=== PATIENT | male | born 1990 | race Caucasian/White ===

== ENCOUNTER 2019-05-06 12:26 | Emergency (ER) | payer OTHER ==
[2019-05-06 12:30] VITALS: BP 124/71; PULSE 68; TEMP 98.7; BMI 22.8
[2019-05-06] MEDS ORDERED: SODIUM CHLORIDE 0.9% 500 ML INFUS.BAG IV ONE (13:48)
[2019-05-06] MEDS ORDERED: FAMOTIDINE 20 MG/50 ML IVPB 20 MG/50 ML MG IVPB ONE ×2 (13:48→14:02)
--- NOTE | 2019-05-06 13:49 | PDOC ---
History of Present Illness - General Chief Complaint: Shortness of Breath Stated Complaint: WEAKNESS/ SOB Time Seen by Provider: 05/06/19 13:20 History Source: Patient Exam Limitations: No Limitations - History of Present Illness Initial Comments: 05/06/19 13:44 Patient is a 28-year-old male who was recently diagnosed with gastritis 1 month ago and started on omeprazole. States he had been having epigastric pain x3 months and went to his primary care doctor had a work-up was sent to GI for an endoscopy. States he has been on omeprazole for a month was feeling better until about 4 days ago when he started having dizziness, weakness and went to [facility] for evaluation. States an EKG and a chest x-ray were done with no findings. He was scheduled to see a greenskeeper laborer in 2 weeks. Patient states 3 days ago stared to have some difficulties with breathing states if feel like it is hard to take a deep breath. He denies cough, sore throat, reflux. He is also more concerned about his lack energy and decreased appetite x 3 days. States does not feel gassy. Endorsed having left sided chest pain 5 days ago and yesterday but did not have any pain today. Family HX; neg for [place]/CVA/PE/ DVT. 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 PMD: [facility] PMHX: as above PSOCHX: neg cig, neg etoh, neg drug ALL: NKDA GENERAL/CONSTITUTIONAL: [No fever or chills. No weakness. No weight change.] HEAD, EYES, EARS, NOSE AND THROAT: [No change in vision. No ear pain or discharge. No sore throat.] CARDIOVASCULAR: [(+) chest pain or shortness of breath.] RESPIRATORY: [No cough, wheezing, or hemoptysis.] GASTROINTESTINAL: [No nausea, vomiting, diarrhea or constipation. No rectal bleeding.] GENITOURINARY: [No dysuria, frequency, or change in urination.] MUSCULOSKELETAL: [No joint or muscle swelling or pain. No neck or back pain.] SKIN AND BREASTS: [No rash or easy bruising.] NEUROLOGIC: [No headache, vertigo, loss of consciousness, or loss of sensation.] PSYCHIATRIC: [No depression or anxiety.] ENDOCRINE: [No increased thirst. No abnormal weight change.] HEMATOLOGIC/LYMPHATIC: [No anemia, easy bleeding, or history of blood clots.] ALLERGIC/IMMUNOLOGIC: [No hives or skin allergy. No latex allergy.] GENERAL: [The patient is awake, alert, and fully oriented, in no acute distress. ] HEAD: [Normal with no signs of trauma.] EYES: [Pupils equal, round and reactive to light, extraocular movements intact, sclera anicteric, conjunctiva clear.] ENT: [Ears normal, nares patent, oropharynx clear without exudates. Moist mucous membranes.] NECK: [Normal range of motion, supple without lymphadenopathy, JVD, or masses.] LUNGS: [Breath sounds equal, clear to auscultation bilaterally. No wheezes, and no crackles.] HEART: [Regular rate and rhythm, normal S1 and S2 without murmur, rub.] ABDOMEN: [Soft, (+) tenderness epigastrum, normoactive bowel sounds. No guarding, no rebound. No masses.] EXTREMITIES: [Normal range of motion, no edema. No clubbing or cyanosis. No cords, erythema, or tenderness.] NEUROLOGICAL: [Cranial nerves II through XII grossly intact. Normal speech, normal gait.] PSYCH: [Normal mood, normal affect.] SKIN: [Warm, Dry, normal turgor, no rashes or lesions noted.] Past History - Past Medical History Allergies/Adverse Reactions: Allergies Allergy/AdvReac Type Severity Reaction Status Date / Time No Known Allergies Allergy Unverified 05/06/19 13:48 Home Medications: Ambulatory Orders NK [No Known Home Medication] 05/06/19 COPD: No - Psycho Social/Smoking Cessation Hx Smoking History: Never smoked *Physical Exam - Vital Signs Last Vital Signs Temp Pulse Resp BP Pulse Ox 98.7 F 68 18 124/71 100 05/06/19 12:29 05/06/19 12:29 05/06/19 12:29 05/06/19 12:29 05/06/19 12:29 ED Treatment Course - LABORATORY CBC & Chemistry Diagram: 05/06/19 13:25 05/06/19 13:49 Medical Decision Making - Medical Decision Making 05/06/19 13:44 Patient is a 28-year-old male who was recently diagnosed with gastritis 1 month ago and started on omeprazole. States he had been having epigastric pain x3 months and went to his primary care doctor had a work-up was sent to GI for an endoscopy. States he has been on omeprazole for a month was feeling better until about 4 days ago when he started having dizziness, weakness and went to [facility] for evaluation. States an EKG and a chest x-ray were done with no findings. He was scheduled to see a greenskeeper laborer in 2 weeks. Patient states 3 days ago stared to have some difficulties with breathing states if feel like it is hard to take a deep breath. He denies cough, sore throat, reflux. He is also more concerned about his lack energy and decreased appetite x 3 days. States does not feel gassy. Endorsed having left sided chest pain 5 days ago and yesterday but did not have any pain today. Family HX; neg for [place]/CVA/PE/ DVT. 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 Symptoms are consistent with gastrointestinal issues due to gastritis; Will get routine lab, include Trop x1, EKG IV fluids, Pepcid Repeat chest x-ray offered but patient declines at this time. States he had a chest x-ray 4 days ago with no findings. Reassess 05/06/19 14:45 Noted no acute findings on lab work EKG: SR rate 61, NAD, no ST-T wave changes Reassessment: Patient feels improved, vs stable Instructed to follow-up with primary care doctor. Keep his cardiology appointment. I discussed the physical exam findings, ancillary test results and final diagnoses with the patient. I answered all of the patient's questions. The patient was satisfied with the care received and felt comfortable with the discharge plan and treatment plan. The Patient agrees to follow up with the primary care physician within 24-72 hours. Discharge - Discharge Information Problems reviewed: Yes Clinical Impression/Diagnosis: Weakness Gastritis Qualifiers: Gastritis type: unspecified gastritis Chronicity: unspecified Gastritis bleeding: without bleeding Qualified Code(s): K29.70 - Gastritis, unspecified, without bleeding Condition: Stable Disposition: HOME - Follow up/Referral - Patient Discharge Instructions Patient Printed Discharge Instructions: DI for Gastritis, DI for Muscle Weakness Additional Instructions: Your Discharge Instructions: You must call primary care physician within 24 hours to arrange follow-up. Return to the Emergency Department with any new, persistent or worsening symptoms, for fever, chills, SOB, dizziness or any other concerning changes that may occur. Keep your appointment with cardiology in 2 weeks. Take your medications as prescribed. You may also use Maalox as needed for your symptoms. - Post Discharge Activity
[2019-05-06 14:03] LABS: BASO % 0.8 % (0-2.0); EOS % 1.4 % (0-4.5); HEMATOCRIT 45.9 % (35.4-49); HEMOGLOBIN 15.5 GM/dL (11.7-16.9); LYMPH % 24.7 % (8-40); MCH 33.3 pg (25.7-33.7); MCHC 33.9 g/dl (32.0-35.9); MEAN CELL VOLUME 98.3 fl (80-96); MEAN PLT VOLUME 10.4 fl (7.5-11.1); MONO % 7.1 % (3.8-10.2); PLATELET COUNT 193 K/MM3 (134-434); RBC 4.67 M/mm3 (4.00-5.60); RDW 12.6 % (11.9-15.9); WHITE BLOOD COUNT 6.7 K/mm3 (4.0-10.0)
[2019-05-06 14:29] LABS: ALK PHOS 89 U/L (45-117); ANION GAP 5 MMOL/L (8-16); BILIRUBIN,TOTAL 0.6 mg/dL (0.2-1); BLOOD UREA NITROGEN 15.2 mg/dL (7-18); CALCIUM 9.3 mg/dL (8.5-10.1); CHLORIDE 102 mmol/L (98-107); CO2 32 mmol/L (21-32); CREATININE 0.9 mg/dL (0.55-1.3); GLUCOSE,RANDOM 82 mg/dL (74-106); POTASSIUM 4.3 mmol/L (3.5-5.1); SGOT/AST 13 U/L (15-37); SGPT/ALT 46 U/L (13-61); SODIUM 139 mmol/L (136-145); TOT PROT 7.8 g/dl (6.4-8.2)
--- NOTE | 2019-05-07 15:56 | EKG ---
Test Reason : Blood Pressure : / mmHG Vent. Rate : 061 BPM Atrial Rate : 061 BPM P-R Int : 136 ms QRS Dur : 090 ms QT Int : 406 ms P-R-T Axes : 039 053 042 degrees QTc Int : 408 ms NORMAL SINUS RHYTHM NORMAL ECG NO PREVIOUS ECGS AVAILABLE Confirmed by VERONICA ARAYA MD ([id number]) on 05/07/2019 3:56:17 PM Referred By: Confirmed By:VERONICA ARAYA MD
== END 2019-05-06 15:13 | disposition home or self-care (01) ==
LOC: JER 12:26
PROC: 3E033GC Introduction of Other Therapeutic Substance into Peripheral Vein, Percutaneous Approach (ICD-10-PCS; principal; 2019-05-06)
DX: K29.70 Gastritis, unspecified, without bleeding (principal); R53.1 Weakness
CPT/HCPCS: 36415; 80053; 82550; 84484; 85025; 93005; 93010; 96365; 99283-25

== ENCOUNTER 2019-05-25 04:39 | Emergency (ER) | payer OTHER ==
[2019-05-25 05:19] VITALS: BMI 20.5
--- NOTE | 2019-05-25 05:46 | PDOC ---
History of Present Illness - General Chief Complaint: Shortness of Breath Stated Complaint: WEAKNESS Time Seen by Provider: 05/25/19 05:40 - History of Present Illness Initial Comments: 05/25/19 06:37 28m with no pmh presents to the ed with complaint of shortness of breath and general weakness at home around 1-2am. He admits to some nasal congestion and dry cough but no fever, chest pain, n/v/ d. He denies taking any medication before coming here. He states that since he's been in our ED, his complains resolved and he feels fine. No sick contacts. No recent travel, period of immobility, recent surgeries. Past History - Past Medical History Allergies/Adverse Reactions: Allergies Allergy/AdvReac Type Severity Reaction Status Date / Time No Known Allergies Allergy Unverified 05/25/19 05:19 Home Medications: Ambulatory Orders NK [No Known Home Medication] 05/06/19 COPD: No - Psycho Social/Smoking Cessation Hx Smoking History: Never smoked Review of Systems - Review of Systems Able to Perform ROS?: Yes Is the patient limited Gabonese proficient: No Constitutional: No: Symptoms Reported HEENTM: No: Symptoms Reported Respiratory: Yes: See HPI Cardiac (ROS): No: Symptoms Reported ABD/GI: No: Symptoms Reported : No: Symptoms Reported Musculoskeletal: No: Symptoms Reported Integumentary: No: Symptoms Reported Neurological: No: Symptoms reported All Other Systems: Reviewed and Negative *Physical Exam - Vital Signs Last Vital Signs Temp Pulse Resp BP Pulse Ox 98.0 F 70 18 113/73 100 05/25/19 05:18 05/25/19 05:18 05/25/19 05:18 05/25/19 05:18 05/25/19 05:20 - Physical Exam General Appearance: Yes: Nourished, Appropriately Dressed. No: Apparent Distress HEENT: positive: EOMI, KENA, Normal ENT Inspection Respiratory/Chest: positive: Lungs Clear, Normal Breath Sounds. negative: Chest Tender, Respiratory Distress, Accessory Muscle Use, Labored Respiration, Rapid RR, Decreased Breath Sounds, Paradoxal Breathing, Crackles, Rales, Rhonchi , Stridor, Hyperresonant, Dullness, Plerual Rub Cardiovascular: positive: Regular Rhythm, Regular Rate. negative: S1, S2 Gastrointestinal/Abdominal: positive: Normal Bowel Sounds, Flat, Soft. negative : Tender Musculoskeletal: positive: Normal Inspection. negative: CVA Tenderness Extremity: positive: Normal Capillary Refill, Normal Inspection, Normal Range of Motion Integumentary: positive: Normal Color, Dry, Warm Neurologic: positive: Fully Oriented, Alert, Normal Mood/Affect, Normal Response , Motor Strength 5 Medical Decision Making - Medical Decision Making 05/25/19 06:42 28m, asymptomatic, with now-resolved episode of sob and weakness at home tonight. PAtient feels fines and ok to go home. However will check labs/cxr before dc to r/o anemia/infectious process 05/25/19 06:44 Discharge - Discharge Information Problems reviewed: Yes Clinical Impression/Diagnosis: SOB (shortness of breath), Weakness Condition: Improved Disposition: HOME - Admission No - Follow up/Referral - Patient Discharge Instructions Patient Printed Discharge Instructions: Common Cold Additional Instructions: Follow up with your primary care physician within the next 3 days. Come back to the emergency department for any new, worsening or concerning symptom. Print Language: BRUNEIAN - Post Discharge Activity
[2019-05-25 07:01] LABS: BASO % 0.5 % (0-2.0); EOS % 1.4 % (0-4.5); HEMATOCRIT 44.3 % (35.4-49); HEMOGLOBIN 15.2 GM/dL (11.7-16.9); LYMPH % 28.4 % (8-40); MCH 33.5 pg (25.7-33.7); MCHC 34.3 g/dl (32.0-35.9); MEAN CELL VOLUME 97.7 fl (80-96); MEAN PLT VOLUME 10.1 fl (7.5-11.1); NEUT % 61.7 % (42.8-82.8); PLATELET COUNT 171 K/MM3 (134-434); RBC 4.54 M/mm3 (4.00-5.60); RDW 12.5 % (11.9-15.9); WHITE BLOOD COUNT 4.9 K/mm3 (4.0-10.0)
--- NOTE | 2019-05-25 07:06 | PDOC ---
Attending Attestation - Resident Resident Name: Velasquez Rome - ED Attending Attestation I have performed the following: I have examined & evaluated the patient, The case was reviewed & discussed with the resident, I agree w/resident's findings & plan, Exceptions are as noted - HPI HPI: 05/25/19 07:04 28-year-old male no past medical history here today complaining of feeling short of breath. Patient states he woke from his sleep suddenly feeling short of breath felt like he had an asthma attack however he never has a history of asthma no history of childhood asthma denies any leg swelling no fevers no chills no cough felt like he could not get enough air and overall was been feeling weak with generalized fatigue. Denies any fevers or chills no recent travel no leg swelling no calf tenderness no history of PE or DVT. Review of patient's chart she was here he was here 1 month ago for similar episode in addition to gastritis complaint of feeling generalized fatigue patient does not have a primary doctor no other current complaints no chest pain and overall right now is feeling 100% improved - Physicial Exam PE: 05/25/19 07:05 Awake alert no acute distress lungs are clear bilaterally heart is regular without murmurs rubs or gallops abdomen is soft and nontender extremities are warm well perfused 2+ DP PT pulses there is no peripheral edema no calf tenderness neurologically patient is awake alert and oriented x3 - Medical Decision Making 05/25/19 07:05 28-year-old male no past medical history here today complaining of episodic or transient shortness of breath this point is very improved will obtain basic electrolytes and CBC to rule out anemia rule out electrolyte abnormalities and chest x-ray to rule out any underlying pneumonia chest EKG was ordered in addition to rule out any dysrhythmia supposing all labs and tests are normal patient will likely be discharged home with follow-up
[2019-05-25 07:33] LABS: ALBUMIN 3.8 g/dl (3.4-5.0); BILIRUBIN,TOTAL 0.9 mg/dL (0.2-1); CALCIUM 9.2 mg/dL (8.5-10.1); CREATININE 0.8 mg/dL (0.55-1.3); POTASSIUM 4.4 mmol/L (3.5-5.1); TOT PROT 7.2 g/dl (6.4-8.2)
[2019-05-25 08:15] VITALS: BP 108/65; PULSE 61; TEMP 97.9
--- NOTE | 2019-05-25 08:21 | PDOC ---
*Physical Exam - Vital Signs Last Vital Signs Temp Pulse Resp BP Pulse Ox 97.9 F 61 19 108/65 100 05/25/19 08:14 05/25/19 08:14 05/25/19 08:14 05/25/19 08:14 05/25/19 08:14 ED Treatment Course - LABORATORY CBC & Chemistry Diagram: 05/25/19 06:40 05/25/19 06:40 - ADDITIONAL ORDERS Additional order review: Laboratory Results 05/25/19 06:40 Sodium 138 Potassium 4.4 Chloride 104 Carbon Dioxide 30 Anion Gap 4 L BUN 14.0 Creatinine 0.8 Est GFR (CKD-EPI)AfAm 140.90 Est GFR (CKD-EPI)NonAf 121.57 Random Glucose 89 Calcium 9.2 Total Bilirubin 0.9 AST 13 L ALT 41 Alkaline Phosphatase 82 Total Protein 7.2 Albumin 3.8 05/25/19 06:40 RBC 4.54 MCV 97.7 H MCHC 34.3 RDW 12.5 MPV 10.1 Neutrophils % 61.7 Lymphocytes % 28.4 Monocytes % 8.0 Eosinophils % 1.4 Basophils % 0.5 Medical Decision Making - Medical Decision Making 05/25/19 08:20 Pt signed out to me by Dr Rome. Pt's labs no significant abnormalities. CXR clear. Pt reexamined by investigative writer. No acute distress. CTA b/l. Will d/c with close follow up with PCP. Discharge - Discharge Information Problems reviewed: Yes Clinical Impression/Diagnosis: SOB (shortness of breath), Weakness Condition: Improved Disposition: HOME - Admission No - Follow up/Referral Referrals: Jalil Miller MD [Non Staff, Medical] - - Patient Discharge Instructions Patient Printed Discharge Instructions: Common Cold Additional Instructions: Follow up with your primary care physician within the next [address] Jalil Miller. Come back to the emergency department for any new, worsening or concerning symptom. Print Language: ALBANIAN - Post Discharge Activity
--- NOTE | 2019-05-30 11:37 | EKG ---
Test Reason : Blood Pressure : / mmHG Vent. Rate : 061 BPM Atrial Rate : 061 BPM P-R Int : 146 ms QRS Dur : 076 ms QT Int : 408 ms P-R-T Axes : 054 054 038 degrees QTc Int : 410 ms NORMAL SINUS RHYTHM NORMAL ECG WHEN COMPARED WITH ECG OF 06-MAY-2019 13:59, NO SIGNIFICANT CHANGE WAS FOUND Confirmed by VALENTIN CROSS MD ([id number]) on 05/30/2019 11:37:06 AM Referred By: Confirmed By:VALENTIN CROSS MD
== END 2019-05-25 08:21 | disposition home or self-care (01) ==
LOC: JER 04:39
DX: R06.02 Shortness of breath (principal)
CPT/HCPCS: 36415; 71046-TC-FY; 80053; 85025; 93005; 93010; 99284-25

== ENCOUNTER 2024-06-21 05:10 | Day surgery (SDC) | payer OTHER ==
[2024-06-19 14:05] VITALS: BMI 29.9
[2024-06-21 10:51] VITALS: TEMP 97.1
[2024-06-21 11:45] VITALS: BP 109/52; PULSE 68; RESP 18
== END 2024-06-21 11:25 | disposition home or self-care (01) ==
LOC: JASU-ENDO 05:10
PROVIDERS: ATTEND Internal Medicine Gastroenterology
PROC: 0DB68ZX Excision of Stomach, Via Natural or Artificial Opening Endoscopic, Diagnostic (ICD-10-PCS; 2024-06-21)
PROC: 0DB98ZX Excision of Duodenum, Via Natural or Artificial Opening Endoscopic, Diagnostic (ICD-10-PCS; principal; 2024-06-21 09:30)
DX: K29.50 Unspecified chronic gastritis without bleeding (principal); B96.81 Helicobacter pylori [H. pylori] as the cause of diseases classified elsewhere
CPT/HCPCS: 88305-TC; 88342-TC